=== PATIENT | female | born 1940 | race African-American/Black ===

== ENCOUNTER → 2016-09-17 | Outpatient (CLI) | payer MEDICARE ==
--- NOTE | 2016-09-18 10:52 | RAD ---
DATE: 09/17/2016 EXAM: DIGITAL SCREEN BILAT W/CAD HISTORY: Routine screening COMPARISON: 07/14/2012 This study was interpreted with the benefit of Computerized Aided Detection (CAD). The breast parenchyma shows scattered fibroglandular densities. Breast parenchyma level B. FINDINGS: No new or enlarging breast densities are seen. Numerous benign type calcifications are present in both breasts. No suspicious microcalcifications have developed. IMPRESSION: Stable mammograms without evidence of malignancy. BI-RADS CATEGORY: 2 BENIGN FINDING(S) RECOMMENDED FOLLOW-UP: 12M 12 MONTH FOLLOW-UP PQRS compliance statement: Patient information was entered into a reminder system with a target due date for the next mammogram. Mammography is a sensitive method for finding small breast cancers, but it does not detect them all and is not a substitute for careful clinical examination. A negative mammogram does not negate a clinically suspicious finding and should not result in delay in biopsying a clinically suspicious abnormality. "Our facility is accredited by the [employer] Mammography [employer]."
== END | disposition home or self-care (01) ==
LOC: MAMMO 14:12
PROVIDERS: ATTEND Family Medicine
DX: Z12.31 Encounter for screening mammogram for malignant neoplasm of breast (principal)
CPT/HCPCS: G0202; 77067

== ENCOUNTER → 2017-10-23 | Outpatient (CLI) | payer MEDICARE ==
--- NOTE | 2017-10-24 12:09 | RAD ---
DATE: 10/23/2017 EXAM: MAMMO NINO SCREENING BILATERAL HISTORY: routine screening evaluation. COMPARISON: 09/17/2016, 07/14/2012, 04/12/2011 , 02/28/2010 Bilateral CC and MLO views of the breasts were performed. Bilateral breast tomosynthesis was performed in CC and MLO projections. This study was interpreted with the benefit of Computerized Aided Detection (CAD). The breast parenchyma shows scattered fibroglandular densities. Breast parenchyma level B. FINDINGS: Benign calcifications are present. No suspicious masses, microcalcifications or architectural distortion is present to suggest malignancy in either breast. The visualized axillae are unremarkable. IMPRESSION: No mammographic evidence of malignancy. BI-RADS CATEGORY: 2 BENIGN FINDING(S) RECOMMENDED FOLLOW-UP: 12M 12 MONTH FOLLOW-UP Annual screening mammography is recommended, unless clinically indicated sooner based on symptoms or change in physical exam. PQRS compliance statement: Patient information was entered into a reminder system with a target due date for the next mammogram. Mammography is a sensitive method for finding small breast cancers, but it does not detect them all and is not a substitute for careful clinical examination. A negative mammogram does not negate a clinically suspicious finding and should not result in delay in biopsying a clinically suspicious abnormality. "Our facility is accredited by the [employer] Mammography [employer]."
== END | disposition home or self-care (01) ==
LOC: MAMMO 08:48
PROVIDERS: ATTEND Family Medicine
DX: Z12.31 Encounter for screening mammogram for malignant neoplasm of breast (principal)
CPT/HCPCS: 77063; 77067

== ENCOUNTER → 2018-09-30 | Outpatient (CLI) | payer MEDICARE ==
--- NOTE | 2018-09-30 17:07 | KCIC ---
Bilateral digital screening mammograms with 3-D tomosynthesis: Reason for examination: Routine screening. Comparison is made to previous studies dated 10/23/2017 and 09/17/2016. Bilateral mammograms in CC and oblique projections were obtained with 2-D imaging and 3-D tomosynthesis imaging on a Siemens Inspiration unit and reviewed on the workstation. Interpretation was made with the benefit of CAD. The skin and nipples show no abnormalities. No abnormal axillary lymph nodes are seen. The breast parenchyma shows scattered fatty and fibroglandular density. (Breast density: Category B.) There are no dominant masses, suspicious calcifications or architectural distortion. Benign calcifications are present. Impression: No evidence of malignancy. Recommend routine screening. BI-RAD Category 2: Benign. "Our facility is accredited by the [employer] Mammography [employer]." This patient's information has been entered into a reminder system for the patient to be notified with the results of her examination and a target date for the next mammogram. Electronically signed by: Maida Soto MD (09/30/2018 5:04 PM) [id number]
--- NOTE | 2018-10-01 16:55 | KCIC ---
INDICATION: Osteoporosis screening. Postmenopausal screening. COMPARISON: None. TECHNIQUE: Bone densitometry was performed through the lumbar spine and left proximal femurs. FINDINGS: Lumbar Spine: L1-4 BMD: 1.2 T-Score: 1.4 Femoral Neck: BMD: 0.94 T-Score: 0 IMPRESSION: 1. Lumbar spine falls within the normal range. 2. Left femoral neck falls within the normal range. Electronically signed by: Pernell Robison MD (10/01/2018 4:52 PM) [facility]
== END | disposition home or self-care (01) ==
LOC: KCIC DEXA 09:42
PROVIDERS: ATTEND Family Medicine
DX: Z12.31 Encounter for screening mammogram for malignant neoplasm of breast (principal); Z13.820 Encounter for screening for osteoporosis; N64.89 Other specified disorders of breast
CPT/HCPCS: 77063; 77067; 77080

== ENCOUNTER → 2018-12-24 | Outpatient (CLI) | payer MEDICARE ==
--- NOTE | 2018-12-24 14:03 | KCIC ---
Right lower extremity arterial ultrasound History: Peripheral vascular disease Findings: Multiple grayscale, color, and duplex spectral analysis sonographic images were acquired of the right lower extremity arteries. No vessel occlusion is demonstrated although very minimal demonstrable flow of the dorsalis pedis artery. There are diffuse abnormal monophasic waveforms beyond the mid right superficial femoral artery through the calf arteries. There are triphasic waveforms of the right common femoral artery and proximal right superficial femoral artery. There is diffuse plaque present. Velocities in cm/sec: Common femoral artery 162 Profunda femoris artery 185 Proximal SFA 175 Mid SFA 50 Distal SFA 42 Popliteal artery 58 Posterior tibial artery 50 Peroneal artery 47 Anterior tibial artery 24 Dorsalis pedis artery 7 Impression: 1. No vessel occlusion is demonstrated although very minimal demonstrable flow of the dorsalis pedis artery. There are diffuse abnormal monophasic waveforms from the mid right superficial femoral artery into the calf arteries likely due to degree of narrowing between the proximal and mid superficial femoral artery. There is diffuse plaque. Electronically signed by: Singh Sauceda MD (12/24/2018 2:00 PM) [id number]
== END | disposition home or self-care (01) ==
LOC: KCIC US 12:07
PROVIDERS: ATTEND Family Medicine
DX: I70.291 Other atherosclerosis of native arteries of extremities, right leg (principal)
CPT/HCPCS: 93926

== ENCOUNTER → 2020-03-22 | Outpatient (CLI) | payer MEDICARE ==
--- NOTE | 2020-03-23 08:15 | CARD ---
MR#: [id number] Date of Study: 03/22/2020 Ordering Physician: WALTER UP, Referring Physician: WALTRE UP, Tech: Mali Fofana APPROVED REPORT EXAM: Two-dimensional and M-mode echocardiogram with Doppler and color Doppler. Other Information Quality : AverageHR: 67bpm INDICATION Murmur Echo Enhancing Agent Indication: Rule Out Septal Defect Agent/Amount Used: Agitated Saline 20mL 2D DIMENSIONS RVDd4.2 (2.9-3.5cm)Left Atrium(2D)4.0 (1.6-4.0cm) IVSd0.9 (0.7-1.1cm)Aortic Root(2D)2.8 (2.0-3.7cm) LVDd5.4 (3.9-5.9cm)LVOT Diameter2.0 (1.8-2.4cm) PWd1.0 (0.7-1.1cm)LVDs1.8 (2.5-4.0cm) FS (%) 66.0 %SV130.5 ml LVEF(%)92.8 (>50%) Aortic Valve AoV Peak Sha.183.6cm/sAoV VTI41.9cm AO Peak GR.13.5mmHgLVOT Peak Sha.150.1cm/s LVOT VTI 45.62cmAO Mean GR.7mmHg CLARITA (VMAX)1.34dh0BNM (VTI)3.30cm2 Mitral Valve MV E Xwfrbkmt19.1cm/sMV DECEL [id number] MV A Jwiqxgdg22.3cm/sMV GNW39zb E/A Ratio0.7MVA (PHT)2.85cm2 TDI E/Lateral E'8.1E/Medial E'7.5 Pulmonary Valve PV Peak Mzunuiwk48.6cm/sPV Peak Grad.2mmHg Tricuspid Valve TR P. Ttdsfjqj004oh/sRAP GTZXZFQH6jcNb TR Peak Gr.26vpKbIMJS39yuWz Pulmonary Vein S1 Izqbzphe72.3cm/sD2 Zevqcznd58.3cm/s PVa dnyuqtww210tnnn LEFT VENTRICLE The left ventricle is normal size. There is normal left ventricular wall thickness. The left ventricu lar systolic function is normal and the ejection fraction is within normal range. The Ejection Fracti on is 65-70%. There is normal LV segmental wall motion. Transmitral Doppler flow pattern is Grade I-a bnormal relaxation pattern. RIGHT VENTRICLE The right ventricle is normal size. There is normal right ventricular wall thickness. The right ventr icular systolic function is normal. ATRIA The left atrium size is normal. The right atrium size is normal. The interatrial septum is intact wit h no evidence for an atrial septal defect or patent foramen ovale as noted on 2-D or Doppler imaging. Agitated saline contrast study does not reveal an atrial level shunt. AORTIC VALVE The aortic valve is sclerotic, grossly trileaflet and mild to moderately calcified. Doppler and Color Flow revealed no significant aortic regurgitation. There is no significant aortic valvular stenosis. Calculated aortic valve area is 3.23 cm2 with maximum pressure gradient of 15 mmHg and mean pressure gradient of 8 mmHg. MITRAL VALVE The mitral valve is normal in structure and function. There is no evidence of mitral valve prolapse. There is no mitral valve stenosis. Doppler and Color-flow revealed trace mitral regurgitation. TRICUSPID VALVE The tricuspid valve is normal in structure and function. Doppler and Color Flow revealed trace tricus pid regurgitation with an estimated PAP of 34 mmHg. There is no tricuspid valve stenosis. PULMONIC VALVE The pulmonic valve is not well visualized. Doppler and Color Flow revealed trace pulmonic valvular re gurgitation. There is no pulmonic valvular stenosis. GREAT VESSELS The aortic root is normal in size. The ascending aorta is normal in size. The IVC is normal in size a nd collapses >50% with inspiration. PERICARDIAL EFFUSION There is no evidence of significant pericardial effusion. Critical Notification Critical Value: No <Conclusion> The left ventricular systolic function is normal and the ejection fraction is within normal range. Th e Ejection Fraction is 65-70%. There is normal LV segmental wall motion. The interatrial septum is intact with no evidence for an atrial septal defect or patent foramen ovale as noted on 2-D or Doppler imaging. Agitated saline contrast study does not reveal an atrial level s gregory. The aortic valve is sclerotic, grossly trileaflet and mild to moderately calcified. There is no signi ficant aortic valvular stenosis. Signed by : Quinn Katrapati, Electronically Approved : 03/23/2020 08:15:33
== END ==
LOC: ECHO 14:51
PROVIDERS: ATTEND Family Medicine
DX: I35.1 Nonrheumatic aortic (valve) insufficiency (principal)
CPT/HCPCS: 93306

== ENCOUNTER → 2020-04-11 | Outpatient (CLI) | payer MEDICARE ==
--- NOTE | 2020-04-11 16:17 | RAD ---
DATE: 04/11/2020 8:39 AM EXAM: MAMMO NINO SCREENING BILATERAL HISTORY: Screening COMPARISON: 09/30/2018, 10/23/2017 Bilateral CC and MLO views of the breasts were performed. Bilateral breast tomosynthesis was performed in CC and MLO projections. This study was interpreted with the benefit of Computerized Aided Detection (CAD). FINDINGS: Breast Density: SCATTERED The breast parenchyma shows scattered fibroglandular densities. Breast parenchyma level B No suspicious masses, microcalcifications or architectural distortion is present to suggest malignancy in either breast. The visualized axillae are unremarkable. IMPRESSION: No mammographic evidence of malignancy. BI-RADS CATEGORY: 1 NEGATIVE RECOMMENDED FOLLOW-UP: 12M 12 MONTH FOLLOW-UP Annual screening mammography is recommended, unless clinically indicated sooner based on symptoms or change in physical exam. PQRS compliance statement: Patient information was entered into a reminder system with a target due date for the next mammogram. Mammography is a sensitive method for finding small breast cancers, but it does not detect them all and is not a substitute for careful clinical examination. A negative mammogram does not negate a clinically suspicious finding and should not result in delay in biopsying a clinically suspicious abnormality. "Our facility is accredited by the [employer] Mammography Program."
== END ==
LOC: MAMMO 08:40
PROVIDERS: ATTEND Family Medicine
DX: Z12.31 Encounter for screening mammogram for malignant neoplasm of breast (principal)
CPT/HCPCS: 77063; 77067

== ENCOUNTER → 2021-04-16 | Outpatient (CLI) | payer MEDICARE ==
--- NOTE | 2021-04-16 16:23 | RAD ---
Bilateral digital screening 2-D and 3-D (digital breast tomosynthesis) mammogram: Reason for examination: Routine screening. Comparison: Mammograms from April 11, 2020 and 09/30/2018. Interpretation was made with the benefit of CAD. FINDINGS: Breast density: Category B. There are scattered areas of fibroglandular density. No suspicious breast mass, malignant appearing calcifications, or architectural distortion is seen. IMPRESSION: No evidence of malignancy. Assessment: BI-RADS 1. Negative. Recommendation: Routine screening mammograms. The patient will receive a letter with the results in the mail. Patient information will be entered i nto the mammography reminder system with a target recall date for the next mammogram. A reminder brittney er will be generated. Electronically signed by: Mini Mendoza MD (04/16/2021 4:20 PM) [id number]
== END ==
LOC: MAMMO 07:35
PROVIDERS: ATTEND Family Medicine
DX: Z12.31 Encounter for screening mammogram for malignant neoplasm of breast (principal)
CPT/HCPCS: 77063; 77067